=== PATIENT | female | born 1940 | race Caucasian/White ===

== ENCOUNTER 2017-09-24 14:17 | Emergency (ER) | payer MEDICARE, SELFPAY ==
[2017-09-24 14:18] VITALS: BP 145/72; PULSE 74; RESP 18; TEMP 36.9; O2SAT 99; BMI 27.0
--- NOTE | 2017-09-24 14:31 | CT_ITS ---
STUDY: CT ABDOMEN WITH CONTRAST REASON FOR EXAM: Female, 77 years old. Right upper quadrant pain and right lower rib pain. RADIATION DOSAGE (If Supplied By Facility): CTDIvol = ( 11.12 ) mGy, DLP = ( 601.60 ) mGycm TECHNIQUE: Transaxial images were obtained post I.V. administration of 100 ml of Isovue 300 contrast, and oral contrast. Sagittal and coronal images were reconstructed. Individualized dose optimization techniques were used for this CT. COMPARISON: None. FINDINGS: Mild degree of increased markings with mild bronchiectasis at the lung bases suggestive of bibasilar scarring. The visualized portions of the heart are within normal limits. Mild degree of intrahepatic biliary ductal dilatation. Status post cholecystectomy. Dilatation of the common bile duct measuring 1.2 cm in maximum transverse dimension. Normal spleen. 6.3 mm cyst in the region of the body of the pancreas. Simple appearing cyst in the posterior aspect of the body of the pancreas. Normal bilateral adrenal glands. Normal right kidney. Normal left kidney. There is a small hiatal hernia. There has been subtotal resection of the stomach. An anastomosis seen in the mid-distal portion of the small bowel. There are multiple colonic diverticula consistent with diverticulosis. The appendix is visualized and appears normal. Normal abdominal aorta. Normal inferior vena cava. Normal retroperitoneum. The patient is status post hysterectomy. Normal abdominal wall. There are degenerative changes of the visualized lumbar spine. CT/Abdomen/Pelvis WITH Contrast IMPRESSION: Sigmoid diverticulosis. Prior cholecystectomy with a dilated common bile duct. Tiny cystic changes in the pancreas. Electronically Signed: Addy Junior MD at 15:27 EDT Tel [phone], Service support ,
--- NOTE | 2017-09-24 14:31 | EKG12_ITS ---
Test Reason : FALL Blood Pressure : / mmHG Vent. Rate : 075 BPM Atrial Rate : 075 BPM P-R Int : 132 ms QRS Dur : 074 ms QT Int : 400 ms P-R-T Axes : 050 -11 015 degrees QTc Int : 446 ms Normal sinus rhythm Normal ECG When compared with ECG of 19-JUN-2013 17:57, No significant change was found Confirmed by GREGORIA MAYFIELD, PAIGE ([id number]), food expeditor NIRMALA SANCHEZ ([id number] on 10/05/2017 3:09:59 PM Referred By: HASEEB Confirmed By:PAIGE KINNEY MD
--- NOTE | 2017-09-24 14:42 | ED.VISSUMM ---
- ER Visit Summary Date of Service: 09/24/17 Chief Complaint: Patient was drying her legs off after taking a shower and fell striking the commode History of Present Illness: The patient is a 77 F who was driving her legs off. She states she was leaning forward. She states she lost her balance striking toilet. She hit the right side of her chest/abdomen. She complains of pain with movement, breathing. She denies head trauma. She is on no anticoagulant. She denies headache. She denies nausea or vomiting. She denies any ocular, visual or auditory symptoms. She denies neck pain. She denies paresthesia, anesthesia motor weakness. She denies any right upper extremity pain. She has not urinated since the event. She does have history of type 2 diabetes and is on metformin. She was informed that she will not be able take her metformin for 2 days. Physical Examination: Vital signs are unremarkable. Patient appears uncomfortable. Head is atraumatic normocephalic. Pupils are equal round reactive. Extraocular muscles are intact. TMs are pearly white with landmarks noted. Nares patent with no drainage. Posterior pharynx without erythema or exudate. Uvula is midline. There is no dysphonia or dysphasia. Trachea is midline. There is no stridor with auscultation of the neck. There is no midline cervical spine spine tenderness and she has full active range of motion without discomfort. Heart is regular without murmur, gallop or rub. S1 and S2 are normal. Lungs are clear to auscultation with good movement of air bilaterally. There is pain palpation anterior to posterior axillary line over ribs 5, 6, 7 and 8 on the right side. There is pain palpation the right upper quadrant/right costal margin. Patient grimaces with minimal pressure. There is bruising noted. There is no tenderness left upper quadrant. There is no splenomegaly. There is no CVA tenderness appreciated. There is no pain the patient the pelvis. She has full active range of motion of the upper and lower extremities with no evidence of trauma or tenderness. Distal pulses in the upper and lower extremity are palpable. GCS is 15. Patient is alert and oriented ?3. Motor is 5/5. Sensation is intact. DTRs are symmetric without clonus or Babinski. Cranial nerves II through XII are intact. Finger to nose to finger was performed adequately. Test Results: CBC is marked for slight elevation of white count which is secondary to trauma. Glucose is 270. BUN and creatinine are [address] of the abdomen and pelvis with IV contrast to evaluate for hepatic injury was negative for any hepatic injury. There is no evidence of pulmonary contusion, rib fracture or pneumothorax. Film was reviewed by me and interpreted by the radiologist. Emergency Department Course and Treatment: IV was established. She received a fluid bolus. CT of the abdomen with IV contrast was obtained to evaluate for hepatic injury as well as lower rib cage fracture/pulmonary contusion. Patient was medicated with Zofran and morphine for her discomfort. Treatment Plan: Discharged home with pain medicine Disposition: Discharged home with spouse Impression: 1. Right lower rib contusion secondary to fall 2. Right upper quadrant abdominal contusion secondary to fall initial encounter 3. Hyperglycemia type II diabetic This note was generated with goodideazs dictation software. It may contain incorrect words, spelling, and punctuation that were not noted in review of the chart prior to signing ED Disposition - Plan for ED Patient: Disposition: Home or Assisted Living Chief Complaint: Fall Instructions: ED Contusion Rib Prescriptions: Hydrocodone Bitart/Apap 5-325 [[place] 5MG-325MG] 1 tab PO Q6H PRN PRN 3 Days #10 tab PRN Reason: Pain Referrals: Radha Mc MD [Primary Care Provider] - 1 Week if not improving Additional Instructions: 1. Do not take your metformin for the next 2 days. 2. Drink plenty of fluids in next 24 hours 3. You may be sore for several days and may hurt and other places.
[2017-09-24] MEDS: 0.9% Normal Saline 1,000 ML 999 ML IV (14:43)
[2017-09-24] MEDS: Morphine 4 MG/ML Syringe IV (14:44)
[2017-09-24] MEDS: Ondansetron 4 MG/2 ML Vial IV (14:44)
--- NOTE | 2017-09-24 14:52 | NURSING ---
NO LW OR POA
[2017-09-24 14:55] LABS: Absolute Lymphocyte Count 1.39 X10^3/ul (0.83-4.51); Absolute Neutrophil Count 9.2 X10^3/uL (2.0-7.7); Basophil# 0.03 X10^3/uL; Basophil% 0.3 % (0-1); Eosinophil# 0.12 X10^3/uL; Eosinophils% 1.1 % (0-5); Hematocrit 36.6 % (37-47); Hemoglobin 12.2 g/dl (12.0-15.0); Lymphocyte # 1.39 X10^3/ul (4.0); Lymphocyte % 12.2 % (19-41); Mean Corp Hgb Conc 33.3 g/gl (32-36); Mean Corpuscular Hgb 29.2 pg (27.0-32.0); Mean Corpuscular Volume 87.6 fL (81-99); Mean Platelet Vol. 11.2 fl (6.2-12.0); Monocyte# 0.66 X10^3/uL; Monocyte% 5.8 % (0-10); Neutrophil # 9.16 X10^3/uL (2.7-7.7); Neutrophil % 80.4 % (47-70); Platelet Count 233 K/mm3 (150-450); RBC Distribution Width CV 13.3 % (11.6-14.6); RBC Distribution Width SD 41.6 fl (35.1-43.9); Red Blood Count 4.18 M/mm3 (4.2-5.4); White Blood Count 11.4 K/mm3 (4.4-11.0)
[2017-09-24 14:56] LABS: POSITIVE COUNT NO; POSITIVE DIFFERENTIAL NO; POSITIVE MORPHOLOGY NO
[2017-09-24 15:10] LABS: Anion Gap 9 (5-15); BUN 22 mg/dL (7-18); BUN/Creat Ratio 29.9 RATIO (10-20); Calcium,Total 8.8 mg/dL (8.5-10.1); Chloride 102 mmol/L (98-107); Creatinine, Serum 0.74 mg/dL (0.55-1.02); EST Glomerular Filtration Rate 82 mL/min (>60); Est Glom Filt Rate - Afr Amer 99 mL/min (>60); Estimated Creatinine Clearance 36.12 ml/min; Glucose 270 mg/dL (74-106); Potassium 4.6 mmol/L (3.5-5.1); Sodium Level 139 mmol/L (136-145)
[2017-09-24 16:36] VITALS: BP 134/66; PULSE 74; RESP 20; O2SAT 99
== END 2017-09-24 16:39 | disposition home or self-care (01) ==
PROVIDERS: Emergency Provider Emergency Medicine; Family Provider Internal Medicine; PCP Internal Medicine
DX: S20.211A Contusion of right front wall of thorax, initial encounter (principal); S30.1XXA Contusion of abdominal wall, initial encounter; W18.39XA Other fall on same level, initial encounter; Y93.89 Activity, other specified; Y92.9 Unspecified place or not applicable; E11.65 Type 2 diabetes mellitus with hyperglycemia; I10 Essential (primary) hypertension; Z79.84 Long term (current) use of oral hypoglycemic drugs; Z79.899 Other long term (current) drug therapy
CPT/HCPCS: 74177; 80048; 85025; 93005; 96361; 96374; 96375; 99285; Q9967; J2405

== ENCOUNTER 2020-02-23 00:36 | Inpatient (IN) | payer MEDICARE, SELFPAY ==
[2020-02-23] VITALS (9 sets, daily range): BP systolic 110–129; BP diastolic 52–79; PULSE 64–80; RESP 16–22; TEMP 36.6–36.8; O2SAT 93–97; BMI 24.0; BMI 23.5
--- NOTE | 2020-02-23 00:46 | EKG12_ITS ---
Test Reason : ALT LOC Blood Pressure : / mmHG Vent. Rate : 079 BPM Atrial Rate : 079 BPM P-R Int : 128 ms QRS Dur : 082 ms QT Int : 376 ms P-R-T Axes : 034 -21 024 degrees QTc Int : 431 ms Normal sinus rhythm Cannot rule out Anterior infarct , age undetermined Abnormal ECG Confirmed by GREGORIA MAYFIELD, PAIGE ([id number]), news videotape editor JENA RUIZ ([id number]) on 02/26/2020 1:08:19 PM Referred By: BRUCE Confirmed By:PAIGE KINNEY MD
--- NOTE | 2020-02-23 00:46 | CT_ITS ---
STUDY: CT BRAIN WITHOUT CONTRAST REASON FOR EXAM: Female, 79 years old. CONFUSION,HALLUCINATING AND MEMORY ISSUES X 1 WEEK -- ELEVATED BLOOD SUGAR -- HX:HTN,DIABETES RADIATION DOSAGE (If Supplied By Facility): CTDIvol = ( 44.99 ) mGy, DLP = ( 745.49 ) mGycm TECHNIQUE: Transaxial CT imaging of the brain was performed without administration of intravenous contrast material. Individualized dose optimization techniques were used for this CT. COMPARISON: 01/02/2012. FINDINGS: Normal soft tissue structures. Normal calvarium. There is mild cerebral atrophy with widening of the extra-axial spaces and ventricular dilatation. There are areas of decreased attenuation within the white matter tracts of the supratentorial brain, consistent with microvascular disease changes. Normal basal ganglia and thalami. Normal brainstem. Normal cerebellum. There is no intracranial hemorrhage. There are no findings of an acute ischemic infarction. Normal visualized paranasal sinuses. CT/Brain/Head without Contrast IMPRESSION: Chronic changes as described. No acute intracranial hemorrhage or space-occupying lesion. Electronically Signed: Mar Hooker MD at 1:33 EST , Service support ,
--- NOTE | 2020-02-23 00:47 | RAD_ITS ---
STUDY: X-RAY CHEST REASON FOR EXAM: Female, 79 years old. denies any sob, cough or chest pain -- here for confusion TECHNIQUE: Single AP portable view of the chest. COMPARISON: 01/02/2012. FINDINGS: The lungs are clear and expanded. There is no demonstrated pleural abnormality. Normal size heart. Normal mediastinum and michael. Normal visualized pulmonary arteries. There is atherosclerotic calcification of the aortic arch with tortuosity. Normal visualized thoracic spine. There is degenerative osteoarthritis of the bilateral shoulders. There is no demonstrated abnormality of the visualized soft tissue structures of the upper abdomen. RAD/Chest 1 View (Portable) IMPRESSION: No acute cardiopulmonary disease. Electronically Signed: Mar Hooker MD at 1:20 EST , Service support ,
[2020-02-23 00:50] LABS: Bedside Glucose 309 mg/dL (70-110)
[2020-02-23 00:54] LABS: Absolute Lymphocyte Count 2.54 X10^3/uL (0.83-4.51); Absolute Neutrophil Count 6.8 X10^3/uL (2.0-7.7); Basophil# 0.05 X10^3/uL; Basophil% 0.5 % (0-1); Eosinophil# 0.17 X10^3/uL; Eosinophils% 1.6 % (0-5); Hematocrit 41.1 % (37-47); Hemoglobin 13.2 g/dL (12.0-15.0); Lymphocyte # 2.54 X10^3/ul (4.0); Lymphocyte % 24.5 % (19-41); Mean Corp Hgb Conc 32.1 g/dL (32-36); Mean Corpuscular Hgb 26.8 pg (27.0-32.0); Mean Corpuscular Volume 83.5 fL (81-99); Mean Platelet Vol. 10.5 fl (6.2-12.0); Monocyte# 0.78 X10^3/uL; Monocyte% 7.5 % (0-10); NRBC Flagged by Analyzer 0 % (0-5); Neutrophil # 6.79 X10^3/uL (2.7-7.7); Neutrophil % 65.5 % (47-70); Platelet Count 268 K/mm3 (150-450); RBC Distribution Width CV 13.8 % (11.6-14.6); RBC Distribution Width SD 42.3 fl (35.1-43.9); Red Blood Count 4.92 M/mm3 (4.2-5.4); White Blood Count 10.4 K/mm3 (4.4-11.0)
--- NOTE | 2020-02-23 01:01 | ED.DCSUM_ITS ---
History of Present Illness Chief Complaint: Alt LOC Informant: Patient Onset: Days Context: Gradual Onset Timing: Continuous Current Severity: Moderate Maximum Severity: Moderate Narrative: Patient is a 79-year-old female with medical history significant for cirrhosis of unclear etiology, hypertension, and diabetes that presents to the emergency department with confusion. The patient lives by herself. Her daughter has been staying with her for the past week. She states that she has been increasingly confused. She does not think she is taking her diabetes medications appropriately. She states that she has difficulty with word finding which has steadily been worsening. The patient states she has no history of hepatic encephalopathy. She denies fevers or chills. She denies cough. She denies headache or visual change. She states that she feels like she knows what she wants to say, but when she tries to talk, it will be nonsensical. She is had no focal weakness. She has not had any falls. Prior similar symptoms: No Recent Illness/Hospitalization: No Past Medical History - Allergies and Home Meds Allergies/Adverse Reactions: Allergies codeine Allergy (Verified 02/23/20 00:38) Unknown Sulfa (Sulfonamide Antibiotics) Allergy (Verified 02/23/20 00:38) Unknown Primary Care Physician: Radha Mc MD [Primary Care Provider] - Prior records reviewed: Yes Past Medical History: - - Diabetes, hypertension, cirrhosis Surgical History: gastric bypass Lives: With Family Smoking Status: Never smoker Alcohol: None Review of Systems General: Reports: Malaise. Denies: Chills, Fever, Sweats Eyes: Denies: Visual changes - bilaterally, Diplopia ENT: Denies: Rhinorrhea, Sore throat Cardiovascular: Denies: Chest pain, Palpitations Respiratory: Denies: Dyspnea, Cough, Dyspnea on exertion Gastrointestinal: Denies: Abdominal pain, Nausea, Vomiting, Diarrhea, Melena, Hematochezia Genitourinary: Denies: Dysuria, Hematuria, Frequency Musculoskeletal: Denies: Back pain, Extremity Pain Skin: Denies: Rash, Wounds Neurological: Reports: Weakness. Denies: Headache, Numbness Psych: Denies: Anxiety Endocrine: Reports: Polyuria Physical Exam Vital Signs/Narrative: Vital Signs Temp Pulse Resp BP Pulse Ox 02/23/20 00:39 97.9 F 80 22 H 129/79 H 95 Inital Vital Signs reviewed: Yes General: Well nourished, Well developed, No Acute Distress Head: Normocephalic, Atraumatic Eyes: Perrl, EOMI ENT: Moist mucous membranes, No rhinorrhea Neck: Supple, Nontender Cardiovascular: Regular rate, Regular rhythm, No murmurs Respiratory: No distress, CTA bilaterally, Chest nontender Abdomen: Soft, Nontender, Nondistended, Normal bowel sounds Back: Nontender, Normal Inspection Extremities: Nontender, No edema Skin: Normal color, No rash Neurological: Alert, Oriented x3, Cranial nerves II-XII grossly intact, Normal Strength, Normal Sensation, - - Intermittent word finding difficulties. Oriented by 3. No ataxia. Psychological: Normal affect, Normal Mood Diagnostic/Tx/Re-eval Clinical Impression(s) from Imaging Studies Brain CT 02/23/20 00:46 IMPRESSION: Chronic changes as described. No acute intracranial hemorrhage or space-occupying lesion. Electronically Signed: Mar Hooker MD at 1:33 EST , Service support , Chest X-Ray 02/23/20 00:47 IMPRESSION: No acute cardiopulmonary disease. Electronically Signed: Mar Hooker MD at 1:20 EST , Service support , Abnormal Lab Results 02/23/20 02/23/20 02/23/20 00:44 00:45 00:45 WBC 10.4 RBC 4.92 Hgb 13.2 Hct 41.1 MCV 83.5 MCH 26.8 L MCHC 32.1 RDW Std Deviation 42.3 RDW Coeff of Kamari 13.8 Plt Count 268 MPV 10.5 Immature Gran % (Auto) 0.400 Neut % (Auto) 65.5 Lymph % (Auto) 24.5 [place] % (Auto) 7.5 Eos % (Auto) 1.6 Baso % (Auto) 0.5 Absolute Neuts (auto) 6.8 Absolute Lymphs (auto) 2.54 Nucleated RBC % 0 PT 12.2 INR 1.0 Sodium Potassium Chloride Carbon Dioxide Anion Gap BUN Creatinine Estim Creat Clear Calc Est GFR (MDRD) Af Amer Est GFR (MDRD) Non-Af BUN/Creatinine Ratio Glucose Lactic Acid Calcium Total Bilirubin AST ALT Alkaline Phosphatase Ammonia Total Protein Albumin Globulin Albumin/Globulin Ratio POC Glucose 309 H 02/23/20 02/23/20 02/23/20 00:45 00:59 00:59 WBC RBC Hgb Hct MCV MCH MCHC RDW Std Deviation RDW Coeff of Kamari Plt Count MPV Immature Gran % (Auto) Neut % (Auto) Lymph % (Auto) [place] % (Auto) Eos % (Auto) Baso % (Auto) Absolute Neuts (auto) Absolute Lymphs (auto) Nucleated RBC % PT INR Sodium 131 L Potassium 4.9 Chloride 96 L Carbon Dioxide 24.0 Anion Gap 11 BUN 66 H Creatinine 1.01 Estim Creat Clear Calc 34.64 Est GFR (MDRD) Af Amer 68 Est GFR (MDRD) Non-Af 56 L BUN/Creatinine Ratio 65.3 H Glucose 334 H Lactic Acid 3.5 H* Calcium 9.7 Total Bilirubin 0.50 AST 32 ALT 143 H Alkaline Phosphatase 97 Ammonia 30.0 Total Protein 8.1 Albumin 4.0 Globulin 4.1 Albumin/Globulin Ratio 1.0 POC Glucose - Medical Decision Making Patient is a 79-year-old female presents to the emergency department with increasing confusion. She does have some difficulty with word finding. She has no focal motor weakness. She does not have asterixis. She does have history of cirrhosis of unclear etiology. Broad metabolic work-up was pursued. Screening labs are relatively unremarkable except for markedly elevated BUN of 66. Her INR is normal. Her liver functions are normal. The patient does have an elevated lactic acid, but really has no other infectious symptoms. Her anion gap is normal. Her bicarb is normal. She has been having high sugars for the past week. I do feel that she is likely having prerenal azotemia and dehydration. My suspicion is that she is likely uremic causing her confusion. The patient's BUN on 17 October was normal at 19. Her creatinine was also 0.6 at that [address]. Noncontrast head CT was negative for acute process. Chest x-ray is unremarkable. Patient was given IV fluids. Urine was obtained. With the patient's delirium and uremia, I do feel that she would benefit from admission. Impression 1. Encephalopathy 2. Uremia 3. Hyperglycemia ED Disposition - Plan for ED Patient: Referrals: Radha Mc MD [Primary Care Provider] -
[2020-02-23 01:07] LABS: AST(SGOT) 32 U/L (15-37); Alanine Aminotransfer ALT/SGPT 143 U/L (13-56); Alkaline Phosphatase 97 U/L (45-117); Anion Gap 11 (5-15); BUN 66 mg/dL (7-18); BUN/Creat Ratio 65.3 RATIO (10-20); Calcium,Total 9.7 mg/dL (8.5-10.1); Chloride 96 mmol/L (98-107); Creatinine, Serum 1.01 mg/dL (0.55-1.02); EST Glomerular Filtration Rate 56 mL/min (>60); Est Glom Filt Rate - Afr Amer 68 mL/min (>60); Estimated Creatinine Clearance 34.64 ml/min; Globulin 4.1 g/dL (2.2-4.2); Glucose 334 mg/dL (74-106); Potassium 4.9 mmol/L (3.5-5.1); Protein, Total 8.1 g/dL (6.4-8.2); Sodium Level 131 mmol/L (136-145)
[2020-02-23 01:09] LABS: Prothrombin Time (Protime)PT. 12.2 SECONDS (11.7-14.9)
[2020-02-23 01:34] LABS: Lactic Acid 3.5 mmol/L (0.4-1.9)
[2020-02-23 01:48] LABS: Magnesium 2.5 mg/dL (1.6-2.6); Phosphorus 8.2 mg/dL (2.5-4.9)
[2020-02-23] MEDS: 0.9% Normal Saline 1,000 ML 999 ML IV (02:12)
[2020-02-23 02:13] LABS: Bacteria 0 SEEN /hpf (None Seen); Color, Urine Straw (Yellow); Glucose, Dipstick 1000 mg/dl (Normal); Ketone-Dipstick 5 mg/dl (Negative); Leukocyte Esterase-Dipstick 25 /ul (Negative); Mucous, Urine 0 SEEN /hpf (<or=2+); Nitrite-Dipstick Negative (Negative); Occult Blood-Urine Negative /ul (Negative); Protein-Dipstick Negative (Negative); Red Blood Cells-Urine 0 SEEN /hpf (0-5); Squamous Epithelial Cells - UA 0 SEEN /hpf (5-10); Urine Bilirubin Dipstick Negative (Negative); Urine Clarity Clear (Clear); Urine Urobilinogen Normal (Normal)
[2020-02-23 02:29] LABS: Transitional Epithelial - Ur 0-5 SEEN /hpf (0-5); White Blood Cells 0-5 SEEN /hpf (0-5)
--- NOTE | 2020-02-23 03:34 | PCM.HP.STD ---
Problem List (1) Uremic encephalopathy Status: Acute (2) History of gastric bypass Status: Chronic (3) Diabetes mellitus, type 2 Status: Chronic (4) Cirrhosis, nonalcoholic Status: Chronic History of Present Illness Date of Admission: 02/23/20 Chief Complaint: confusion The patient is a 79 year old F with a significant history of depression; diabetes mellitus; vitamin D deficiency; and osteoporosis presents emergency department with 1 week history of persistent confusion. Reportedly patient has been confused and missing her medication and also using word substitution. Because of her confusion her daughter went to live with patient. Reportedly blood glucose at home has been around 500. Past Medical History Past Medical History (Chronic Problems): Chronic Problems History of gastric bypass (Chronic) Diabetes mellitus, type 2 (Chronic) Cirrhosis, nonalcoholic (Chronic) Allergies codeine Allergy (Verified 02/23/20 00:38) Unknown Sulfa (Sulfonamide Antibiotics) Allergy (Verified 02/23/20 00:38) Unknown Home Medications: Ambulatory Orders Medication Instructions Recorded Amitriptyline HCl [Elavil] 50 mg PO DAILY 06/19/13 Metoprolol(XL)Succ [Toprol Xl 25 mg PO DAILY 06/19/13 (Beta Meg)] Simvastatin [Zocor] 10 mg PO QHS 06/19/13 Spironolactone [Aldactone] 25 mg PO DAILY 06/19/13 metFORMIN HCl [Glucophage] 1,000 mg PO BID 06/19/13 Multivitamin [Multiple Vitamins] 1 each PO DAILY 04/30/16 Cholecalciferol (Vitamin D3) 4,000 unit PO DAILY 02/23/20 [Vitamin D3] Cyanocobalamin [Vitamin B12] 1,000 mcg PO DAILY@0800 02/23/20 Empagliflozin [Jardiance] 10 mg PO BREAKFAST 02/23/20 Ergocalciferol (Vitamin D2) 50,000 unit PO MO 02/23/20 [Vitamin D2] Gabapentin 300 mg PO DAILY 02/23/20 Liraglutide [Victoza 3-Wes] 1.8 mg SQ DAILY 02/23/20 Surgical History: cholecystectomy, gastric bypass, hysterectomy, total knee arthroplasty, - - Knee ACL repair; 3 C-sections; shoulder surgery. Lives: With Family Smoking Status: Never smoker Tobacco Use: Non-smoker Alcohol: None - *Family History Maternal History Items: - - Her mother at the age of 99 Paternal History Items: Heart Disease - Her father at the age of 49 from heart disease. Review of Systems Constitutional: Reports: Fatigue. Denies: Chills, Fever, Weight Change HEENT: Denies: Head Aches, Sinus Congestion, Sinus Drainage Cardiovascular: Denies: Chest Pain, Palpitations Respiratory: Denies: Cough, Shortness of breath at rest, Sputum production Gastrointestinal: Denies: Abdominal Pain, Nausea, Vomiting Genitourinary: Reports: Frequency - Increased urinary frequency. Denies: Dysuria Musculoskeletal: Denies: Joint Pain, Joint Tenderness Skin: Denies: Rash, Wounds Neurological: Reports: Confusion. Denies: Focal weakness, Numbness, Tingling Psychiatric: Denies: Anxiety, Depression, Homicidal Ideations, Suicidal Ideations Hematologic/ Lymphatic: Denies: Easy Bruising, Easy Bleeding VTE Information - Inpt Only VTE Present on Admission: No VTE Mechan Device Prophylaxis: None VTE Pharm Prophylaxis ordered?: Yes Patient Problems: Active and Suspected Problems Uremic encephalopathy (Acute) - Physical Exam Vitals/I&O's: Vital Signs Temp Pulse Resp BP Pulse Ox 97.9 F 75 18 110/74 94 02/23/20 02:59 02/23/20 02:59 02/23/20 02:59 02/23/20 02:59 02/23/20 02:59 Oxygen Delivery Method Room Air Weight: 57.8 kg Body Mass Index (BMI) 24.0 Finger Stick Blood Glucose 309 Intake and Output for Last 24 Hours 02/21/20 02/22/20 02/23/20 23:59 23:59 23:59 Intake Total 500 / 500 Balance 500 / 500 General: Alert, Oriented x3 - Patient know of where she is. She knows the place, the year and the month., Cooperative HEENT: Atraumatic, PERRLA, EOMI, Normocephalic Neck: Supple, No JVD, Negative Carotid Bruits Lungs: Clear to auscultation, Normal air movement Cardiovascular: Regular rate, Normal S1, Normal S2, No murmurs Abdomen: Bowel Sounds Present, Soft, Non Tender Extremities: No edema, Capillary Refill Less than 3 Seconds Skin: No rashes, No breakdown Musculoskeletal: No Tenderness to Palpation of Joints or Extremities Neurological: Cranial nerves II-XII grossly intact Psych/Mental Status: Normal Affect, Appropriate Laboratory Results 02/23/20 00:44: POC Glucose 309 H 02/23/20 00:45: WBC 10.4, RBC 4.92, Hgb 13.2, Hct 41.1, MCV 83.5, MCH 26.8 L, MCHC 32.1, RDW Std Deviation 42.3, RDW Coeff of Kamari 13.8, Plt Count 268, MPV 10.5, Immature Gran % (Auto) 0.400, Neut % (Auto) 65.5, Lymph % (Auto) 24.5, [place] % (Auto) 7.5, Eos % (Auto) 1.6, Baso % (Auto) 0.5, Absolute Neuts (auto) 6.8, Absolute Lymphs (auto) 2.54, Nucleated RBC % 0 02/23/20 00:45: PT 12.2, INR 1.0 02/23/20 00:45: Sodium 131 L, Potassium 4.9, Chloride 96 L, Carbon Dioxide 24.0, Anion Gap 11, BUN 66 H, Creatinine 1.01, Estim Creat Clear Calc 34.64, Est GFR (MDRD) Af Amer 68, Est GFR (MDRD) Non-Af 56 L, BUN/Creatinine Ratio 65.3 H, Glucose 334 H, Calcium 9.7, Total Bilirubin 0.50, AST 32, ALT 143 H, Alkaline Phosphatase 97, Total Protein 8.1, Albumin 4.0, Globulin 4.1, Albumin/Globulin Ratio 1.0 02/23/20 00:45: Phosphorus 8.2 H, Magnesium 2.5 02/23/20 00:59: Ammonia 30.0 02/23/20 00:59: Lactic Acid 3.5 H* 02/23/20 02:09: Urine Color Straw, Urine Clarity Clear, Urine pH 5.0, Ur Specific [place] 1.020, Urine Protein Negative, Urine Glucose (UA) 1000 H, Urine Ketones 5 H, Urine Occult Blood Negative, Urine Nitrite Negative, Urine Bilirubin Negative, Urine Urobilinogen Normal, Ur Leukocyte Esterase 25 H, Urine RBC 0 SEEN, Urine WBC 0-5 SEEN, Ur Squamous Epith Cells 0 SEEN, Ur Transition Epith Cell 0-5 SEEN, Urine Bacteria 0 SEEN, Urine Mucus 0 SEEN Current Medications Dextrose (Dextrose 50%-Water 25 Gm/50 Ml Disp.Syrin) 0 gm IV X1 PRN; Protocol PRN Reason: Hypoglycemia Glucagon (Glucagon 1 Mg/Ml Syringe) 1 mg IM .X1 PRN PRN Reason: Hypoglycemia Insulin Glargine (Insulin Glargine 100 Units/Ml Pen) 10 units SC 1100 BOBBI Insulin Human Lispro (Insulin Lispro 100 Unit/Ml Insuln.Pen) 0 unit SC ACHS & 3AM BOBBI; Protocol Insulin Human Lispro (Insulin Lispro 100 Unit/Ml Insuln.Pen) 8 unit SC X1 ONE Stop: 02/23/20 04:01 Assessment/Plan All Active Problems Uremic encephalopathy (Acute) Acute uremic encephalopathy. Brain CT without any acute abnormalities. Review of medical department labs showed BUN of 66. Highest previous BUN of is 29. Received normal saline bolus in the emergency department. Hold home spironolactone. Gentle IV hydration Trend BMP. Acute VIELKA Creatinine of 1.01. Previously highest creatinine on file is 0.78. Review of community records , clinisync: On 10/18/2019 her creatinine was 0.61 and BUN was 19. BUN over creatinine is 65.3. Likely prerenal Avoid nephrotoxins Gentle IV hydration Urine electrolytes ordered. Diabetes mellitus with polyneuropathy and acute hyperglycemia Gabapentin continued. Dose adjusted secondary to VIELKA. IV hydration as above. Jardiance continued Hold Victoza in the hospital setting Metformin held secondary to lactic acidosis Basal insulin ordered. Accu-Chek QA CHS and 3 AM with correction scale insulin. Vitamin D deficiency Vitamin D continued Ruiz cirrhosis Hold Aldactone for now. Hydrate as above. Hyperlipidemia Zocor continue. Hypertension Blood pressure is stable in regard to her age Metoprolol continued. Trend blood pressure negative blood pressure medications. DVT prophylaxis Subcutaneous Lovenox. Inpatient E&M: [id number] Init Hosp L3
[2020-02-23] MEDS: 0.9% Normal Saline 1,000 ML 100 ML IV ×2 (04:23→16:17)
[2020-02-23 04:46] LABS: Urea Nitrogen, Urine 760 mg/dL (NO RANGE EST.); Urine Sodium 53 mmol/L (Not Establ.)
[2020-02-23 04:46] LABS: Bedside Glucose 180 mg/dL (70-110)
[2020-02-23 05:07] LABS: Reflex Lactate? Y
[2020-02-23] MEDS: Insulin Lispro 100 UNIT/ML INSULN.PEN SC ×5 (06:33→21:31)
[2020-02-23 06:38] LABS: Anion Gap 11 (5-15); BUN 55 mg/dL (7-18); BUN/Creat Ratio 64.1 RATIO (10-20); Calcium,Total 9.2 mg/dL (8.5-10.1); Chloride 99 mmol/L (98-107); Creatinine, Serum 0.86 mg/dL (0.55-1.02); EST Glomerular Filtration Rate 68 mL/min (>60); Est Glom Filt Rate - Afr Amer 82 mL/min (>60); Estimated Creatinine Clearance 40.68 ml/min; Glucose 285 mg/dL (74-106); Potassium 4.2 mmol/L (3.5-5.1); Sodium Level 133 mmol/L (136-145)
[2020-02-23 06:46] LABS: Bedside Glucose 234 mg/dL (70-110)
[2020-02-23 06:52] LABS: Lactic Acid 3.1 mmol/L (0.4-1.9)
--- NOTE | 2020-02-23 07:22 | PCM.HOSP.N ---
Hospitalist Note This is a 71-year-old female with history of diabetes mellitus type 2, depression, MCWILLIAMS treated cirrhosis was admitted with 1 week history of confusion and disorientation. Her glucose was elevated 500 at home. Patient was admitted pelota maker today. H&P, vitals, labs and imaging reviewed. Physical exam Lungs: Air entry diminished in bilateral lung bases. No crepitation/rhonchi Heart: S1-S2 regular, no murmurs/gallops/rubs. Abdomen: Mild tenderness in right upper costal margin. Liver not enlarged. No ascites. Spleen not palpable. Bowel sounds present. Not distended. Extremities: No peripheral edema. 1. Possible Mcwilliams related cirrhosis with metabolic encephalopathy from uremia/lactic acidosis/hepatic encephalopathy:BUN was high 66 but creatinine normal. Lactic acid was high. Continue IV fluid. Patient states she gets constipation. 2. Acute VIELKA: Continue IV fluid. Other comorbidities as listed above diabetes mellitus type 2 with polyneuropathy, vitamin D deficiency, dyslipidemia and hypertension. DVT prophylaxis Subcutaneous Lovenox.
[2020-02-23] MEDS: Multivitamins,Therapeutic Tablet 1 TABLET PO (10:07)
[2020-02-23] MEDS: Empagliflozin 10 MG Tablet PO (10:07)
[2020-02-23] MEDS: Gabapentin 100 MG Capsule PO (10:08)
[2020-02-23] MEDS: Cyanocobalamin 500 MCG Tablet 1000 MCG PO (10:08)
[2020-02-23] MEDS: Amitriptyline 25 MG Tablet 50 MG PO (10:08)
[2020-02-23] MEDS: Metoprolol(XL)Succ 25 MG Tablet PO (10:09)
[2020-02-23] MEDS: Enoxaparin 40 MG/0.4 ML Syringe SC (10:15)
--- NOTE | 2020-02-23 10:55 | CASEMGMT ---
RN CM Face to Face with patient for initial transition planning/care coordination assessment. RN CM introduced self and role at [facility]. Patient lying in bed, alert and oriented. Patient willing to participate in assessment and is able to answer all questions appropriately. Care providers, pharmacy, and demographics verified. Patient wishes to discharge home, denies need for home health at this time. Patient states she has no further needs or concerns at this time. CM to follow for discharge planning needs that may arise. PCP: Jesusita Specialists: none Preferred Pharmacy: [facility] Insurance: [facility] Prescription Benefit: yes Living Will/HPOA: yes, Donald Henry LNOK: Living Arrangements: Patient lives with in a single story home with 2 steps and railing to enter the home. Patient is independent at home. Transportation: self/daughter DME/HHC: Patient states she has cane, walker, grab bars, and glucometer at home. Patient denies previous HHC. Disposition Plan: Patient to discharge home with family support and follow-up plans in place. Ramona KENNEDY, RN, CM
[2020-02-23 11:51] LABS: Bedside Glucose 287 mg/dL (70-110)
[2020-02-23] MEDS: Lactulose 20 GM/30 ML UDC 10 GM PO ×2 (16:17→21:31)
[2020-02-23 17:21] LABS: Bedside Glucose 276 mg/dL (70-110)
[2020-02-23] MEDS: Atorvastatin Calcium 10 MG Tablet 5 MG PO (21:36)
[2020-02-23] MEDS: rifAXIMin 550 MG Tablet PO (21:38)
[2020-02-23 21:46] LABS: Bedside Glucose 237 mg/dL (70-110)
--- NOTE | 2020-02-23 23:31 | NURSING ---
pt was requesting to call daughter and asked if this RN will speak with pts daughter. this RN talked with pts daughter regarding an update. pts most recent labs were discussed, and pt and daughter both updated that MD was wanting a ABD US scheduled for in the morning to find out more. pts daughter voiced concern that she thinks pt is still confused and has to be reminded frequently about her and where he is. upon further assessment, pt has been A&Ox3, answering all questions appropriately per dayshift and for this RN tonight. pts daughter restates that she would like an update in the morning, or would like to be on the phone when the doctor comes and rounds in the AM, as daughter thinks pt is still not at her baseline. This RN stated that I will pass the information along to dayshift RN
[2020-02-24] MEDS: 0.9% Normal Saline 1,000 ML 100 ML IV (01:29)
[2020-02-24 04:02] VITALS: BP 130/61; PULSE 70; RESP 18; TEMP 36.7; O2SAT 97
--- NOTE | 2020-02-24 07:00 | US_ITS ---
STUDY: ABDOMINAL ULTRASOUND - RIGHT UPPER QUADRANT REASON FOR VISIT: Female, 79 years old H/O CIRRHOSIS, MCWILLIAMS RUQ PAIN S/P ROSSANA TECHNIQUE: Ultrasound evaluation of the right upper quadrant was performed with real-time and static cruz-scale imaging. TECHNICAL QUALITY: Adequate. COMPARISON: CT 09/24/2017 FINDINGS: Liver: The liver measures 12.0 cm. There is normal echogenicity of the liver. The bile ducts are within normal limits. There is hepatic color flow. The direction of portal flow is hepatopetal. There is no demonstrated mass lesion. Gallbladder: The patient is status post cholecystectomy.. Common Bile Duct (C.B.D.): The common bile duct measures 11 mm. Pancreas: Normal size of the head, body and tail of the pancreas. There is normal echogenicity of the pancreas. 1.4 cm round anechoic mass with increased through transmission either within or adjacent to the pancreas suggestive of a cyst. Correlation with pancreas protocol CT is recommended. Right Kidney: Normal size of the right kidney. The right kidney measures 11.5 cm. Normal renal cortex. The right cortex measures 1.4 cm. There is no demonstrated renal mass or cyst. There is no right hydronephrosis. US/Abdomen Limited IMPRESSION: 1.4 cm cyst either within or adjacent to the pancreas and correlation with pancreas protocol CT is recommended. Electronically Signed: Yemi Fraser MD at 9:11 EST Tel , Service support ,
[2020-02-24 07:15] VITALS: O2SAT 93
[2020-02-24 08:07] LABS: Absolute Lymphocyte Count 2.06 X10^3/uL (0.83-4.51); Absolute Neutrophil Count 4.8 X10^3/uL (2.0-7.7); Basophil# 0.04 X10^3/uL; Basophil% 0.5 % (0-1); Eosinophil# 0.19 X10^3/uL; Eosinophils% 2.4 % (0-5); Hematocrit 38.8 % (37-47); Hemoglobin 12.3 g/dL (12.0-15.0); Lymphocyte # 2.06 X10^3/ul (4.0); Lymphocyte % 26.3 % (19-41); Mean Corp Hgb Conc 31.7 g/dL (32-36); Mean Corpuscular Hgb 26.9 pg (27.0-32.0); Mean Corpuscular Volume 84.9 fL (81-99); Monocyte# 0.67 X10^3/uL; Monocyte% 8.6 % (0-10); NRBC Flagged by Analyzer 0 % (0-5); Neutrophil # 4.83 X10^3/uL (2.7-7.7); Neutrophil % 61.8 % (47-70); Platelet Count 227 K/mm3 (150-450); RBC Distribution Width CV 14.1 % (11.6-14.6); RBC Distribution Width SD 43.6 fl (35.1-43.9); Red Blood Count 4.57 M/mm3 (4.2-5.4); White Blood Count 7.8 K/mm3 (4.4-11.0)
[2020-02-24 08:32] LABS: ALB/GLOB Ratio 0.9 RATIO (0.9-2.4); AST(SGOT) 55 U/L (15-37); Alanine Aminotransfer ALT/SGPT 103 U/L (13-56); Albumin, Serum 3.3 g/dL (3.2-5.0); Alkaline Phosphatase 75 U/L (45-117); Anion Gap 6 (5-15); BUN 29 mg/dL (7-18); BUN/Creat Ratio 49.3 RATIO (10-20); Calcium,Total 8.6 mg/dL (8.5-10.1); Chloride 107 mmol/L (98-107); Creatinine, Serum 0.59 mg/dL (0.55-1.02); EST Glomerular Filtration Rate 105 mL/min (>60); Est Glom Filt Rate - Afr Amer 127 mL/min (>60); Estimated Creatinine Clearance 34.99 ml/min; Globulin 3.5 g/dL (2.2-4.2); Glucose 204 mg/dL (74-106); Potassium 4.4 mmol/L (3.5-5.1); Protein, Total 6.8 g/dL (6.4-8.2); Sodium Level 137 mmol/L (136-145)
[2020-02-24 10:45] VITALS: BP 135/61; PULSE 73; RESP 18; TEMP 36.7; O2SAT 96
[2020-02-24] MEDS: Insulin Lispro 100 UNIT/ML INSULN.PEN SC ×2 (11:02)
[2020-02-24] MEDS: Cyanocobalamin 500 MCG Tablet 1000 MCG PO (11:04)
[2020-02-24] MEDS: Enoxaparin 40 MG/0.4 ML Syringe SC (11:04)
[2020-02-24] MEDS: Empagliflozin 10 MG Tablet PO (11:04)
[2020-02-24] MEDS: Amitriptyline 25 MG Tablet 50 MG PO (11:05)
[2020-02-24] MEDS: Multivitamins,Therapeutic Tablet 1 TABLET PO (11:05)
[2020-02-24] MEDS: Gabapentin 100 MG Capsule PO (11:05)
[2020-02-24 11:06] VITALS: PULSE 73
[2020-02-24] MEDS: Metoprolol(XL)Succ 25 MG Tablet PO (11:06)
[2020-02-24] MEDS: rifAXIMin 550 MG Tablet PO (11:09)
[2020-02-24 11:15] LABS: Bedside Glucose 313 mg/dL (70-110)
--- NOTE | 2020-02-24 11:15 | DCINST_ITS ---
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) Diabetes mellitus, type 2 (Chronic) Cirrhosis, nonalcoholic (Chronic) You will use the following diet at home:: Calorie/Carbohydrate Controlled (specify 1200, 1400, etc) - diet callCardiac Your food should be the consistency of: Regular Discharge Activity: May Not Drive - For 2 week until see his PCP Weight Bearing Status: Weight bearing as tolerated - hospitals Call your doctor if you observe: Fever of 101 or Higher, Coldness, Increased Pain, Numbness or Tingling, Change in Color, Inability to urinate, Inability to have a bowel movement, Using more than one pad per hour, Shortness of breath, Dizziness, Fainting spells, Swelling in the ankles, Prolonged hiccoughing, Increased palpitations (irregular heartbeat), Calf discomfort, Uncontrolled pain Allergies/Adverse Reactions: Allergies codeine Allergy (Verified 02/23/20 00:38) Unknown Sulfa (Sulfonamide Antibiotics) Allergy (Verified 02/23/20 00:38) Unknown Medications to take at Discharge Amitriptyline HCl [Elavil] 50 mg PO DAILY 06/19/13 Metoprolol(XL)Succ [Toprol Xl (Beta Meg)] 25 mg PO DAILY 06/19/13 Simvastatin [Zocor] 10 mg PO QHS 06/19/13 Spironolactone [Aldactone] 25 mg PO DAILY 06/19/13 Multivitamin [Multiple Vitamins] 1 each PO DAILY 04/30/16 Cholecalciferol (Vitamin D3) [Vitamin D3] 4,000 unit PO DAILY 02/23/20 Cyanocobalamin [Vitamin B12] 1,000 mcg PO DAILY@0800 02/23/20 Empagliflozin [Jardiance] 10 mg PO BREAKFAST 02/23/20 Ergocalciferol (Vitamin D2) [Vitamin D2] 50,000 unit PO MO 02/23/20 Gabapentin 300 mg PO DAILY 02/23/20 Liraglutide [Victoza 3-Wes] 1.8 mg SQ DAILY 02/23/20 metFORMIN HCl [Glucophage] 500 mg PO BID #0 02/24/20 Primary Care Physician: Radha Mc MD [Primary Care Provider] - Please follow up with your Primary Care Physician in: 1 to 2 weeks Test Results: Test results from this visit will be discussed in further detail at your follow- up appointment, if applicable.
--- NOTE | 2020-02-24 11:16 | DS.PCM_ITS ---
Discharge Date and Diagnosis - Problem List Patient Problems: Active and Suspected Problems Uremic encephalopathy (Acute) Date of Admission: 02/23/20 Date of Discharge: 02/24/20 - Primary Discharge Diagnosis Acute Problems: Active Problems Uremic encephalopathy (Acute) - Secondary Discharge Diagnosis Chronic Problems: Chronic Problems History of gastric bypass (Chronic) Diabetes mellitus, type 2 (Chronic) Cirrhosis, nonalcoholic (Chronic) Hospital Course and Treatment Imaging Results: 02/24/20 07:00 Abdomen Limited [US] Urgent Summary of Care Provided: The patient is a 79 year old F with history of diabetes mellitus type 2, depression was admitted with 1 week history of confusion and disorientation. On further history, she does not have history of Ruiz but she had some liver dysfunction secondary to medication, probably DI LI in the past. She was admitted on the [facility] floor. There was mild right upper quadrant tenderness which got resolved. Right upper quadrant sonogram was done which shows normal echogenicity of liver and bile duct within normal liver. No mass lesion. Status post cholecystectomy. CBD 11 mm. Incidental finding of 1.4 cm anechoic mass within adjacent to pancreas suggestive of cyst. Follow-up with PCP for further definition of the cyst with CT scan with pancreas protocol CT recommendation from radiologist. Confusion disorientation resolved. Acute encephalopathy most probably metabolic from lactic acidosis. Patient was advised to decrease Metformin 500 mg twice daily to be started 5 days after discharge. Follow with PCP in 1 to 2 weeks. Discharge medication reconciliation done. Discharge follow-up instructions completed. Discharge process discussed with the patient and all questions were answered to patient's satisfaction. Total time spent, exact 35 minutes on discharge meds reconciliation, examination, coordination of care with nurses and ancillary staff, review of imaging and blood test and discussion with the patient on follow-up instructions Clinical Impression(s) from Imaging Studies Brain CT 02/23/20 00:46 IMPRESSION: Chronic changes as described. No acute intracranial hemorrhage or space-occupying lesion. Chest X-Ray 02/23/20 00:47 IMPRESSION: No acute cardiopulmonary disease. Abdomen Ultrasound 02/24/20 07:00 IMPRESSION: 1.4 cm cyst either within or adjacent to the pancreas and correlation with pancreas protocol CT is recommended. [] Patient Problems: Active and Suspected Problems Uremic encephalopathy (Acute) Objective: Seen and examined. Patient remains at baseline. She had gastric bypass surgery in the past. She had some liver dysfunction secondary to medication in the past. Right upper quadrant tenderness is resolved. Physical exam General: Alert, Oriented x3, Cooperative HEENT: Atraumatic, PERRLA, EOMI, Normocephalic Oral: No Gingival or Mucosal Lesions/ Ulcerations Neck: Supple, No JVD, Negative Carotid Bruits Lungs: Air entry equal in bilateral lung bases. No crepitation/rhonchi Cardiovascular: Regular rate, Regular Rhythm, Normal S1, Normal S2, No murmurs Abdomen: Bowel Sounds Present, Soft, Non Tender, Non-Distended : No renal angle tenderness. No suprapubic tenderness. Extremities: No edema, Capillary Refill Less than 3 Seconds Skin: No rashes, No breakdown Musculoskeletal: No Tenderness to Palpation of Joints or Extremities Neurological: Cranial nerves II-XII grossly intact, Deep Tendon Reflexes 2+/4 and Symmetrical, Neuro grossly intact Psych/Mental Status: Normal Affect, Appropriate. - Physical Exam Vitals/I&O's: Vital Signs Temp Pulse Resp BP Pulse Ox 98.1 F 73 18 130/61 H 97 02/24/20 04:02 02/24/20 11:06 02/24/20 04:02 02/24/20 04:02 02/24/20 04:02 Oxygen Delivery Method Room Air Weight: 124 lb 5.451 oz Body Mass Index (BMI) 23.5 Finger Stick Blood Glucose 309 Intake and Output for Last 24 Hours 02/22/20 02/23/20 02/24/20 23:59 23:59 23:59 Intake Total 3300 / 3300 920 / 920 Output Total 1000 / 1000 350 / 350 Balance 2300 / 2300 570 / 570 Laboratory Results 02/23/20 11:12: POC Glucose 287 H 02/23/20 16:13: POC Glucose 276 H 02/23/20 21:30: POC Glucose 237 H 02/24/20 07:26: WBC 7.8, RBC 4.57, Hgb 12.3, Hct 38.8, MCV 84.9, MCH 26.9 L, MCHC 31.7 L, RDW Std Deviation 43.6, RDW Coeff of Kamari 14.1, Plt Count 227, MPV 11.0, Immature Gran % (Auto) 0.400, Neut % (Auto) 61.8, Lymph % (Auto) 26.3, Williams % (Auto) 8.6, Eos % (Auto) 2.4, Baso % (Auto) 0.5, Absolute Neuts (auto) 4.8, Absolute Lymphs (auto) 2.06, Nucleated RBC % 0 02/24/20 07:26: Sodium 137, Potassium 4.4, Chloride 107, Carbon Dioxide 24.0, Anion Gap 6, BUN 29 H, Creatinine 0.59, Estim Creat Clear Calc 34.99, Est GFR (MDRD) Af Amer 127, Est GFR (MDRD) Non-Af 105, BUN/Creatinine Ratio 49.3 H, Glucose 204 H, Calcium 8.6, Total Bilirubin 0.30, AST 55 H, ALT 103 H, Alkaline Phosphatase 75, Total Protein 6.8, Albumin 3.3, Globulin 3.5, Albumin/Globulin Ratio 0.9 02/24/20 09:56: Lactic Acid 1.0 02/24/20 11:00: POC Glucose 313 H Current Medications Amitriptyline HCl (Amitriptyline 25 Mg Tablet) 50 mg PO DAILY [facility] Last Admin: 02/24/20 11:05 Dose: 50 mg Documented by: Atorvastatin Calcium (Atorvastatin Calcium 10 Mg Tablet) 5 mg PO QHS [facility] Last Admin: 02/23/20 21:36 Dose: 5 mg Documented by: Cholecalciferol (Cholecalciferol (Vit D3) 1,000 Unit (25mcg)) 4,000 unit PO DAILY [facility] Last Admin: 02/24/20 11:06 Dose: 4,000 unit Documented by: Cyanocobalamin (Cyanocobalamin 500 Mcg Tablet) 1,000 mcg PO DAILY@0800 [facility] Last Admin: 02/24/20 11:04 Dose: 1,000 mcg Documented by: Dextrose (Dextrose 50%-Water 25 Gm/50 Ml Disp.Syrin) 0 gm IV X1 PRN; Protocol PRN Reason: Hypoglycemia Empagliflozin (Empagliflozin 10 Mg Tablet) 10 mg PO BREAKFAST [facility] Last Admin: 02/24/20 11:04 Dose: 10 mg Documented by: Enoxaparin Sodium (Enoxaparin 40 Mg/0.4 Ml Syringe) 40 mg SC DAILY [facility] Last Admin: 02/24/20 11:04 Dose: 40 mg Documented by: Ergocalciferol (Ergocalciferol 50,000 Unit Capsule) 50,000 unit PO QWEEK [facility] Gabapentin (Gabapentin 100 Mg Capsule) 100 mg PO DAILY [facility] Last Admin: 02/24/20 11:05 Dose: 100 mg Documented by: Glucagon (Glucagon 1 Mg/Ml Syringe) 1 mg IM .X1 PRN PRN Reason: Hypoglycemia Sodium Chloride () 1,000 mls @ 100 mls/hr IV .Q10H [facility] Last Admin: 02/24/20 01:29 Dose: 100 mls/hr Documented by: Sodium Chloride () 250 mls @ 15 mls/hr IV .[id number] PRN PRN Reason: Saline Flush Sodium Chloride () 250 mls @ 15 mls/hr IV .[id number] PRN PRN Reason: Additional IVPB Infusion Insulin Glargine (Insulin Glargine 100 Units/Ml Pen) 10 units SC BID [facility] Last Admin: 02/24/20 11:03 Dose: 10 u Documented by: Insulin Human Lispro (Insulin Lispro 100 Unit/Ml Insuln.Pen) 5 unit SC TIDAC [facility] Last Admin: 02/24/20 11:02 Dose: 5 units Documented by: Insulin Human Lispro (Insulin Lispro 100 Unit/Ml Insuln.Pen) 0 unit SC ACHS [facility]; Protocol Last Admin: 02/24/20 11:02 Dose: 6 units Documented by: Lactulose (Lactulose 20 Gm/30 Ml Udc) 10 gm PO TID [facility] Melatonin (Melatonin 3 Mg Tablet) 3 mg PO QHS PRN PRN PRN Reason: INSOMNIA Metoprolol Succinate (Metoprolol(Xl)Succ 25 Mg Tablet) 25 mg PO DAILY [facility] Last Admin: 02/24/20 11:06 Dose: 25 mg Documented by: Multivitamins (Multivitamins,Therapeutic Tablet) 1 tablet PO DAILY@0800 [facility] Last Admin: 02/24/20 11:05 Dose: 1 tablet Documented by: Ondansetron HCl (Ondansetron 4 Mg/2 Ml Vial) 4 mg IV Q8H PRN PRN PRN Reason: NAUSEA/VOMITING Rifaximin (Rifaximin 550 Mg Tablet) 550 mg PO BID [facility] Last Admin: 02/24/20 11:09 Dose: 550 mg Documented by: Sodium Chloride (0.9% Saline Lock 10 Ml Syringe) 10 - 40 ml IV UD PRN PRN Reason: SALINE FLUSH Discharge Activity: May Not Drive - For 2 week until see his PCP Weight Bearing Status: Weight bearing as tolerated - hospitals Call your doctor if you observe: Fever of 101 or Higher, Coldness, Increased Pain, Numbness or Tingling, Change in Color, Inability to urinate, Inability to have a bowel movement, Using more than one pad per hour, Shortness of breath, Dizziness, Fainting spells, Swelling in the ankles, Prolonged hiccoughing, Increased palpitations (irregular heartbeat), Calf discomfort, Uncontrolled pain Home Medications: Medications to take at Discharge Amitriptyline HCl [Elavil] 50 mg PO DAILY 06/19/13 Metoprolol(XL)Succ [Toprol Xl (Beta Meg)] 25 mg PO DAILY 06/19/13 Simvastatin [Zocor] 10 mg PO QHS 06/19/13 Spironolactone [Aldactone] 25 mg PO DAILY 06/19/13 Multivitamin [Multiple Vitamins] 1 each PO DAILY 04/30/16 Cholecalciferol (Vitamin D3) [Vitamin D3] 4,000 unit PO DAILY 02/23/20 Cyanocobalamin [Vitamin B12] 1,000 mcg PO DAILY@0800 02/23/20 Empagliflozin [Jardiance] 10 mg PO BREAKFAST 02/23/20 Ergocalciferol (Vitamin D2) [Vitamin D2] 50,000 unit PO MO 02/23/20 Gabapentin 300 mg PO DAILY 02/23/20 Liraglutide [Victoza 3-Wes] 1.8 mg SQ DAILY 02/23/20 metFORMIN HCl [Glucophage] 500 mg PO BID #0 02/24/20 Primary Care Physician: Radha Mc MD [Primary Care Provider] - Please follow up with your Primary Care Physician in: 1 to 2 weeks Medical Necessity - Tobacco Use Smoking Status: Never smoker Tobacco Use: Non-smoker Meaningful Use Info Meaningful Use Diagnoses (Choose all that apply): None applicable Inpatient E&M: 48370 Disch Hosp
== END 2020-02-24 12:55 | disposition home or self-care (01) | DRG 682 ==
LOC: ED 01:11 → MS3 03:22
PROVIDERS: Admitting Provider Hospitalist; Emergency Provider Emergency Medicine; PCP Internal Medicine; Visit Provider Internal Medicine
DX: N17.9 Acute kidney failure, unspecified (principal); G93.41 Metabolic encephalopathy; G93.49 Other encephalopathy; Z98.84 Bariatric surgery status; K74.60 Unspecified cirrhosis of liver; E11.42 Type 2 diabetes mellitus with diabetic polyneuropathy; F32.9 Major depressive disorder, single episode, unspecified; I10 Essential (primary) hypertension; E11.65 Type 2 diabetes mellitus with hyperglycemia; M81.0 Age-related osteoporosis without current pathological fracture; E55.9 Vitamin D deficiency, unspecified; K75.81 Nonalcoholic steatohepatitis (NASH); E78.5 Hyperlipidemia, unspecified
CPT/HCPCS: 36415; 70450; 71045; 76705; 80048; 80053; 81001; 82140; 82570; 82962; 83605; 83735; 84100; 84300; 84540; 85025; 85610; 87040; 93005; 97162; 97166; 99285; J7030; J7040; A4216

== ENCOUNTER 2020-06-26 17:26 | Emergency (ER) | payer MEDICARE, SELFPAY ==
[2020-02-23 04:31] VITALS: BMI 23.5
[2020-06-26 17:28] VITALS: BP 146/66; PULSE 86; RESP 16; TEMP 36.3; O2SAT 95; BMI 24.3
[2020-06-26 17:40] VITALS: BP 118/64; PULSE 76; RESP 16; O2SAT 96
--- NOTE | 2020-06-26 17:56 | EKG12_ITS ---
Test Reason : CONFUSION Blood Pressure : / mmHG Vent. Rate : 076 BPM Atrial Rate : 076 BPM P-R Int : 118 ms QRS Dur : 072 ms QT Int : 400 ms P-R-T Axes : 049 -18 004 degrees QTc Int : 450 ms Normal sinus rhythm Low voltage QRS Cannot rule out Anterior infarct (cited on or before 23-FEB-2020) Abnormal ECG Confirmed by STEPHANE MAYFIELD, DAGO ([id number]), associate entertainment editor JENA RUIZ ([id number]) on 06/28/2020 2:42:10 PM Referred By: RITU Confirmed By:CARLOS CALDERÓN MD
--- NOTE | 2020-06-26 17:56 | CT_ITS ---
EXAMINATION : Head CT w/out contrast HISTORY : Confusion COMPARISON : 02/23/2020. TECHNIQUE : Multiple contiguous axial images were obtained from the skull base to the vertex without intravenous contrast. A radiation dose optimization technique was used for this scan. FINDINGS : There is no evidence for acute intracranial hemorrhage, mass effect, or midline shift. There is no extra-axial fluid collection. There are periventricular white matter changes consistent with chronic microvascular ischemic disease. There is normal jordan-white differentiation, without CT evidence of acute ischemia or infarct. The skull base and calvarium are unremarkable. The orbits are unremarkable. The paranasal sinuses are clear. The mastoid air cells are well-aerated. The soft tissues are unremarkable. CT/Brain/Head without Contrast IMPRESSION: No acute intracranial abnormality. Chronic ischemic changes of the brain. Electronically Signed: Chas Gibbs MD at 18:33 EDT Tel , Service support ,
--- NOTE | 2020-06-26 17:57 | ED.DCSUM_ITS ---
History of Present Illness Chief Complaint: Confusion Informant: Patient, Family Narrative: Patient is a 79-year-old female with a history of diabetes, nonalcoholic cirrhosis who presents to the emergency department for confusion. Her symptoms have been present over the past 3 days. She is accompanied by her . Apparently she has been taking double the dose of her amitriptyline. The daughter noticed that 2 of the pills were in her pill dispenser to take in the evening. She is not sure how long she has been doing this for. No other medications are thought to be taken inappropriately. She has had this episode of confusion before in the past and was told that she was very dehydrated. Reviewing her medical record she has a history of uremic encephalopathy. She says she has a head discomfort but denies any head pain. No vision changes. No chest pain or shortness of breath. No abdominal pain or nausea/vomiting. No change in bowel movements. No urinary symptoms. She denies any weakness or loss of sensation. Her only complaint is feeling very fatigued and wanting to go to sleep. No history of dementia or strokes in the past. No known head trauma. Past Medical History - Allergies and Home Meds Allergies/Adverse Reactions: Allergies codeine Allergy (Verified 06/26/20 17:31) Unknown Sulfa (Sulfonamide Antibiotics) Allergy (Verified 06/26/20 17:31) Unknown Primary Care Physician: Radha Mc MD [Primary Care Provider] - As soon as possible Prior records reviewed: Yes Surgical History: cholecystectomy, gastric bypass, hysterectomy, total knee arthroplasty, - - Knee ACL repair; 3 C-sections; shoulder surgery. Smoking Status: Never smoker - Family History Maternal Family History: Reports: - - Her mother at the age of 99 Paternal Family History: Reports: Heart Disease - Her father at the age of 49 from heart disease. Review of Systems All systems negative except as indicated General: Reports: Malaise. Denies: Chills, Fever, Sweats Eyes: Denies: Visual changes - bilaterally, Diplopia ENT: Denies: Rhinorrhea, Sore throat Cardiovascular: Denies: Chest pain, Palpitations Respiratory: Denies: Dyspnea, Cough, Dyspnea on exertion Gastrointestinal: Denies: Abdominal pain, Nausea, Vomiting, Diarrhea Genitourinary: Denies: Dysuria, Hematuria, Frequency Musculoskeletal: Denies: Neck pain, Back pain, Extremity Pain Skin: Denies: Rash, Wounds Neurological: Reports: - - Confusion. Denies: Headache, Weakness, Numbness Physical Exam Vital Signs/Narrative: Vital Signs Temp Pulse Resp BP Pulse Ox 06/26/20 17:40 76 16 118/64 96 06/26/20 17:28 97.3 F L 86 16 146/66 H 95 Inital Vital Signs reviewed: Yes General: Well nourished, Well developed, No Acute Distress Head: Normocephalic, Atraumatic Eyes: Perrl, EOMI ENT: Moist mucous membranes, No rhinorrhea Neck: Supple, Nontender Cardiovascular: Regular rate, Regular rhythm, No murmurs Respiratory: No distress, CTA bilaterally, Chest nontender Abdomen: Soft, Nontender, Nondistended, Normal bowel sounds Back: Nontender, Normal Inspection Extremities: Nontender, No edema Skin: Normal color, No rash Neurological: Alert, Cranial nerves II-XII grossly intact, Normal Strength, Normal Sensation, - - Oriented to person and place but not time. No other focal neurological deficits. No discoordination. . Negative for: Left side facial droop, Right side facial droop Psychological: Normal affect, Normal Mood Diagnostic/Tx/Re-eval - EKG Initial EKG Interpretation: - - Rate of 76 bpm normal sinus rhythm. Normal intervals. QRS of 72 with a QTC of 450. Normal axis. No significant ST elevations or depressions. No T wave abnormalities. - Medical Decision Making Patient presents to the emergency department for confusion for the past 3 days. She did take double her dose of the amitriptyline which would equal 100 mg. She does have mild elevation of her liver enzymes compared to baseline. CT scan did not show any acute intracranial abnormality. She does not have any focal neurological deficits on my physical exam. She is just not oriented completely. Given the fact that this is acute I did recommend hospitalization. They were initially agreeable to staying in the hospital at this time but once the h ospitalist came to discuss care and that she would be an observation they were adamantly refusing staying due to potentially having to pay a bill. Risk associated going home were discussed with them. They understand and accept these risk. She was signed out AGAINST MEDICAL ADVICE. She is going to call her family doctor in the morning. The understands he needs to keep track of her medications and she needs to take them appropriately. Return precautions are reviewed including any worsening symptoms. They can come back at any time for further evaluation and work-up. They understand and are agreeable with this plan. ED Disposition - Plan for ED Patient: Disposition: Against Medical Advice Diagnosis: Confusion, Transaminitis Instructions: ED ALOC Referrals: Radha Mc MD [Primary Care Provider] - As soon as possible
[2020-06-26 18:21] LABS: Absolute Lymphocyte Count 1.88 X10^3/uL (0.83-4.51); Absolute Neutrophil Count 6.8 X10^3/uL (2.0-7.7); Basophil# 0.04 X10^3/uL; Basophil% 0.4 % (0-1); Eosinophil# 0.14 X10^3/uL; Eosinophils% 1.5 % (0-5); Hematocrit 46.9 % (37-47); Hemoglobin 15.1 g/dL (12.0-15.0); Lymphocyte # 1.88 X10^3/ul (4.0); Lymphocyte % 19.9 % (19-41); Mean Corp Hgb Conc 32.2 g/dL (32-36); Mean Corpuscular Hgb 28.3 pg (27.0-32.0); Monocyte# 0.58 X10^3/uL; Monocyte% 6.1 % (0-10); NRBC Flagged by Analyzer 0 % (0-5); Neutrophil # 6.77 X10^3/uL (2.7-7.7); Neutrophil % 71.8 % (47-70); Platelet Count 225 K/mm3 (150-450); RBC Distribution Width CV 16.6 % (11.6-14.6); RBC Distribution Width SD 53.4 fl (35.1-43.9); Red Blood Count 5.33 M/mm3 (4.2-5.4); White Blood Count 9.4 K/mm3 (4.4-11.0)
[2020-06-26 18:41] LABS: Anion Gap 6 (5-15); BUN 17 mg/dL (7-18); BUN/Creat Ratio 22.8 RATIO (10-20); Calcium,Total 9.6 mg/dL (8.5-10.1); Chloride 106 mmol/L (98-107); Creatinine, Serum 0.74 mg/dL (0.55-1.02); EST Glomerular Filtration Rate 80 mL/min (>60); Est Glom Filt Rate - Afr Amer 97 mL/min (>60); Estimated Creatinine Clearance 34.99 ml/min; Glucose 144 mg/dL (74-106); Sodium Level 138 mmol/L (136-145)
[2020-06-26 18:45] LABS: AST(SGOT) 223 U/L (15-37); Alanine Aminotransfer ALT/SGPT 370 U/L (13-56); Albumin, Serum 4.1 g/dL (3.2-5.0); Alkaline Phosphatase 108 U/L (45-117); Globulin 3.8 g/dL (2.2-4.2); Protein, Total 7.9 g/dL (6.4-8.2)
[2020-06-26 19:12] LABS: Bacteria 0 SEEN /hpf (None Seen); Color, Urine Yellow (Yellow); Glucose, Dipstick 1000 mg/dl (Normal); Ketone-Dipstick Negative (Negative); Leukocyte Esterase-Dipstick 100 /ul (Negative); Mucous, Urine 0 SEEN /hpf (<or=2+); Nitrite-Dipstick Negative (Negative); Occult Blood-Urine Negative /ul (Negative); Protein-Dipstick Negative (Negative); Red Blood Cells-Urine 0 SEEN /hpf (0-5); Specific Gravity, Urine 1.015 (1.002-1.030); Urine Bilirubin Dipstick Negative (Negative); Urine Clarity Clear (Clear); Urine Urobilinogen Normal (Normal)
[2020-06-26 19:17] LABS: Squamous Epithelial Cells - UA 0-5 SEEN /hpf (5-10); White Blood Cells 0-5 SEEN /hpf (0-5)
--- NOTE | 2020-06-26 20:01 | HP.PCM_ITS ---
Problem List (1) Altered mental status Status: Acute (2) Hypertension Status: Chronic (3) Hyperlipidemia Status: Chronic (4) Fibromyalgia Status: Chronic (5) Diabetes mellitus, type 2 Status: Chronic (6) Cirrhosis, nonalcoholic Status: Chronic History of Present Illness Date of Admission: 06/26/20 Chief Complaint: Confusion The patient is a 79 year old F who presents today with confusion. Patient's daughter reports that when she was checking her mom's medication organizer she noticed to amitriptyline in each day instead of 1. It is unknown how long patient has been taking double dose. Patient states that she is fuzzy in the head. Patient denies other symptoms. Patient is noted to have elevated ALT and AST however ammonia is normal. Otherwise patient labs are unremarkable. EKG shows normal sinus rhythm, heart rate 73. Past Medical History Past Medical History (Chronic Problems): Chronic Problems Hypertension (Chronic) Hyperlipidemia (Chronic) Fibromyalgia (Chronic) History of gastric bypass (Chronic) Diabetes mellitus, type 2 (Chronic) Cirrhosis, nonalcoholic (Chronic) Allergies codeine Allergy (Verified 06/26/20 17:31) Unknown Sulfa (Sulfonamide Antibiotics) Allergy (Verified 06/26/20 17:31) Unknown Home Medications: Ambulatory Orders Medication Instructions Recorded Amitriptyline HCl [Elavil] 50 mg PO DAILY 06/19/13 Metoprolol(XL)Succ [Toprol Xl 25 mg PO DAILY 06/19/13 (Beta Meg)] Simvastatin [Zocor] 10 mg PO QHS 06/19/13 Spironolactone [Aldactone] 25 mg PO DAILY 06/19/13 Multivitamin [Multiple Vitamins] 1 each PO DAILY 04/30/16 Cholecalciferol (Vitamin D3) 4,000 unit PO DAILY 02/23/20 [Vitamin D3] Cyanocobalamin [Vitamin B12] 1,000 mcg PO DAILY@0800 02/23/20 Empagliflozin [Jardiance] 10 mg PO BREAKFAST 02/23/20 Liraglutide [Victoza 3-Wes] 1.8 mg SQ DAILY 02/23/20 metFORMIN HCl [Glucophage] 500 mg PO BID #0 02/24/20 Surgical History: cholecystectomy, gastric bypass, hysterectomy, total knee arthroplasty, - - Knee ACL repair; 3 C-sections; shoulder surgery. 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 Review of Systems Constitutional: Reports: Fatigue. Denies: Chills, Fever, Weight Change HEENT: Denies: Head Aches, Sinus Congestion, Sinus Drainage Cardiovascular: Denies: Chest Pain, Palpitations Respiratory: Denies: Cough, Shortness of breath at rest, Sputum production Gastrointestinal: Denies: Abdominal Pain, Nausea, Vomiting Genitourinary: Denies: Dysuria Musculoskeletal: Denies: Joint Pain, Joint Tenderness Skin: Denies: Rash, Wounds Neurological: Reports: Confusion. Denies: Focal weakness, Numbness, Tingling Psychiatric: Denies: Anxiety, Depression, Homicidal Ideations, Suicidal Ideations Hematologic/ Lymphatic: Denies: Easy Bruising, Easy Bleeding VTE Information - Inpt Only VTE Present on Admission: No VTE Mechan Device Prophylaxis: None VTE Pharm Prophylaxis ordered?: Yes - Physical Exam Vitals/I&O's: Vital Signs Temp Pulse Resp BP Pulse Ox 97.3 F L 76 16 118/64 96 06/26/20 17:28 06/26/20 17:40 06/26/20 17:40 06/26/20 17:40 06/26/20 17:40 Oxygen Delivery Method Room Air Weight: 129 lb Body Mass Index (BMI) 24.3 Finger Stick Blood Glucose 309 General: Alert, Oriented x3, Cooperative, Disoriented - Difficulty with information recall HEENT: Atraumatic, PERRLA, EOMI, Normocephalic Neck: Supple, No JVD, Negative Carotid Bruits Lungs: Clear to auscultation, Normal air movement, No rhonchi, No wheeze, No rales Cardiovascular: Regular rate, Regular Rhythm, Normal S1, Normal S2, No murmurs Abdomen: Bowel Sounds Present, Soft, Non Tender Extremities: No edema, Capillary Refill Less than 3 Seconds Skin: No rashes, No breakdown Musculoskeletal: No Tenderness to Palpation of Joints or Extremities Neurological: Cranial nerves II-XII grossly intact Psych/Mental Status: Normal Affect, Appropriate Laboratory Results 06/26/20 18:00: Total Bilirubin 0.30, Direct Bilirubin 0.10, AST 223 H, ALT 370 H, Alkaline Phosphatase 108, Total Protein 7.9, Albumin 4.1, Globulin 3.8 06/26/20 18:00: WBC 9.4, RBC 5.33, Hgb 15.1 H, Hct 46.9, MCV 88.0, MCH 28.3, MCHC 32.2, RDW Std Deviation 53.4 H, RDW Coeff of Kamari 16.6 H, Plt Count 225, MPV 11.0, Immature Gran % (Auto) 0.300, Neut % (Auto) 71.8 H, Lymph % (Auto) 19.9, [place] % (Auto) 6.1, Eos % (Auto) 1.5, Baso % (Auto) 0.4, Absolute Neuts (auto) 6.8, Absolute Lymphs (auto) 1.88, Nucleated RBC % 0 06/26/20 18:00: Sodium 138, Potassium 4.0, Chloride 106, Carbon Dioxide 26.0, Anion Gap 6, BUN 17, Creatinine 0.74, Estim Creat Clear Calc 34.99, Est GFR (MDRD) Af Amer 97, Est GFR (MDRD) Non-Af 80, BUN/Creatinine Ratio 22.8 H, Glucose 144 H, Calcium 9.6, Troponin I < 0.015 06/26/20 18:13: Ammonia 11.0 06/26/20 19:05: Urine Color Yellow, Urine Clarity Clear, Urine pH 6.0, Ur Specific [place] 1.015, Urine Protein Negative, Urine Glucose (UA) 1000 H, Urine Ketones Negative, Urine Occult Blood Negative, Urine Nitrite Negative, Urine Bilirubin Negative, Urine Urobilinogen Normal, Ur Leukocyte Esterase 100 H, Urine RBC 0 SEEN, Urine WBC 0-5 SEEN, Ur Squamous Epith Cells 0-5 SEEN, Urine Bacteria 0 SEEN, Urine Mucus 0 SEEN Assessment/Plan All Active Problems Altered mental status (Acute) 1. Altered mental status -Admit to [facility] for observation -Slightly related to accidental double dosing of amitriptyline -CBC and CMP for a.m. -IV fluids ordered -See OT to eval and treat 2. Hypertension -Continue home medication regimen 3. Hyperlipidemia -Continue home medication regimen 4. Fibromyalgia -Hold amitriptyline overnight 5. Diabetes mellitus type II -Hold Metformin, continue Jardiance -AC at bedtime blood sugars with sliding scale insulin ordered 6. Non-Alcoholic cirrhosis -Reviewed patient previous labs, AST and ALT elevated in comparison. DVT prophylaxis-subcu Lovenox This patient was seen by AUGUSTO Posada under the supervision of Dr. Greenfield
[2020-06-26 20:04] VITALS: BP 147/87; PULSE 72; RESP 16; TEMP 36.6; O2SAT 97
== END 2020-06-26 20:49 | disposition left against medical advice (07) ==
LOC: ED 19:54 → MS3 20:38
PROVIDERS: Emergency Provider Emergency Medicine; PCP Internal Medicine
DX: R41.0 Disorientation, unspecified (principal); E11.9 Type 2 diabetes mellitus without complications; Z98.84 Bariatric surgery status; Z90.710 Acquired absence of both cervix and uterus; Z90.49 Acquired absence of other specified parts of digestive tract; Z79.84 Long term (current) use of oral hypoglycemic drugs
CPT/HCPCS: 70450; 80048; 80076; 81001; 82140; 84484; 85025; 93005; 99284; A4216

== ENCOUNTER 2021-07-14 21:23 | Emergency (ER) | payer MEDICARE, SELFPAY ==
[2021-07-14 21:24] VITALS: BP 110/57; PULSE 78; RESP 16; TEMP 36.7; O2SAT 96; BMI 22.6
--- NOTE | 2021-07-14 21:30 | RAD_ITS ---
EXAM: XR Right Shoulder Complete, 2 or More Views CLINICAL INDICATION: 80 years old, Female; FALL INJURY TECHNIQUE: Two or more views of the right shoulder. This report was created using [employer] report generation technology. COMPARISON: None. FINDINGS: Bones/joints: Mild degenerative changes right glenohumeral joint. Postop changes right shoulder. Old right-sided rib fracture. No sclerotic or destructive changes observed. Soft tissues: Unremarkable. No soft tissue swelling or gas. No radiopaque foreign body. RAD/Shoulder min 2 Views IMPRESSION: Mild degenerative changes right glenohumeral joint. No acute findings. Electronically Signed: Harrison Mcarthur MD at 21:59 EDT ,
--- NOTE | 2021-07-15 00:26 | EX.ED.UPPERE ---
HPI History of Present Illness Chief Complaint: Upper Extremity Injury Informant: patient and spouse/S.O. Occured/Mechanism Mechanism/Context: Yes fall Onset/Context/Timing Onset: Today Context: Sudden Onset Timing: Continuous Quality of Pain: Aching Location: Right shoulder, right hip Worsened by: Movement Relieved by: Nothing Associated Symptoms Associated Symptoms: Negative for Parasthesia, Weakness and Loss of Funtion Narrative Narrative: Patient presents with right shoulder and right hip pain that began after a fall today. Patient landed on her right side. Patient denies any head injury or loss of consciousness. Patient denies any paresthesias or weakness. Patient describes her pain as aching. Patient states it is worse with movement especially in her right shoulder. Patient was able to ambulate after the fall. Patient does admit to a mild headache. Patient states her shoulder pain radiates up into her neck. Patient has had a prior rotator cuff surgery on her right shoulder. PFSH PFSH Home Medications amitriptyline 50 mg PO DAILY 06/19/13 [History Last Taken 02/22/20] metoprolol succinate 25 mg PO DAILY 06/19/13 [History Last Taken 02/22/20] simvastatin 10 mg PO QHS 06/19/13 [History Last Taken 02/21/20] spironolactone 25 mg PO DAILY 06/19/13 [History Last Taken 02/22/20] multivitamin [Multiple Vitamins] 1 ea PO DAILY 04/30/16 [History Last Taken 02/22/20] cholecalciferol (vitamin D3) 4,000 unit PO DAILY 02/23/20 [History Last Taken 02/22/20] cyanocobalamin (vitamin B-12) 1,000 mcg PO DAILY@0800 02/23/20 [History Last Taken 02/22/20] empagliflozin 10 mg PO BREAKFAST 02/23/20 [History Last Taken 02/22/20] liraglutide 1.8 mg SQ DAILY 02/23/20 [History Last Taken 02/22/20] metformin 500 mg PO BID #0 02/24/20 [Rx Last Taken 02/22/20] Allergy/AdvReac Type Severity Reaction Status Date / Time codeine Allergy Unknown Verified 06/26/20 17:31 Sulfa (Sulfonamide Allergy Unknown Verified 06/26/20 17:31 Antibiotics) Surgical History (Updated 07/15/21 @ 00:[address] Scott Norman, ) History of hysterectomy History of total right knee replacement (TKR) Hx of cholecystectomy S/P right rotator cuff repair Social History Smoking Status: Never smoker ROS ROS ED Constitutional Constitutional ED: Denies chills or fever(s) Eyes Eyes: Denies blurry vision or change in vision ENT ENT ED: Denies rhinorrhea or sore throat Cardiovascular Cardiovascular: Denies chest pain or palpitations Respiratory/Chest Respiratory/Chest: Denies cough or dyspnea Gastrointestinal Gastrointestinal: Denies nausea or vomiting Genitourinary Genitourinary ED: Denies dysuria or hematuria Musculoskeletal Musculoskeletal: Reports neck pain; Denies back pain Integumentary Denies abscess or rash Neurologic Neurologic: Reports headache(s); Denies weakness Allergic/Immunologic Allergic/Immunologic ED: Denies mouth swelling or urticaria EXAM Physical Exam Narrative Exam Narrative: There is mild tenderness and edema over the lateral aspect of the right hip. There is good range of motion. There is no pain with internal or external rotation. There is tenderness over the right shoulder area. There is pain with abduction and complete flexion. There is no obvious deformity noted. Radial pulses are equal bilateral. Strength is 5/5 bilaterally in the upper and lower extremities. There are no sensory deficits noted. There is no tenderness over the cervical paraspinal muscles or cervical spine. Pedal pulses are equal bilaterally. Radial pulses are equal bilaterally. Const Vital Signs: 07/14/21 21:24 Temperature 98.1 F Temperature Source Temporal Pulse Rate 78 Respiratory Rate 16 Blood Pressure 110/57 L Blood Pressure Mean 74 Pulse Ox 96 Oxygen Delivery Method Room Air Positive well nourished and well developed General Appearance ED: well developed and NAD HEENT Reports moist mucous membranes Neck full ROM and supple Neuro oriented x3, CN's II-XII intact bilaterally, moves all extremities, no focal motor deficits and no sensory deficits noted Sensorium / Orientation: alert Psych mental status grossly normal MDM MDM MDM Narrative Medical decision making narrative: X-rays of the right shoulder were obtained. There are 4 views. On my interpretation, there is no acute fracture or dislocation. There is a bone anchored noted in the proximal right humerus. There is no soft tissue swelling. Radiologist also interpreted the x-rays and agrees. Since the patient is able to ambulate and does not have pain with logrolling of her right lower extremity, I do not feel x-rays of the right hip are indicated at this time. Patient was advised of her findings. Patient was instructed to use ice to the area. Patient was instructed the range of motion exercises. Patient was instructed to follow-up with her primary care physician in 5 to 7 days. Patient was instructed to take Tylenol or ibuprofen as needed for pain. Patient and spouse understood and were agreeable with the plan. All questions were answered. Radiography Diagnostic Testing: Clinical Impression(s) from Imaging Studies Shoulder X-Ray 07/14/21 21:30 IMPRESSION: Mild degenerative changes right glenohumeral joint. No acute findings. Electronically Signed: Harrison Mcarthur MD at 21:59 EDT , Discharge Plan Triage Chief Complaint: Upper Extremity Injury ED Provider: Scott Norman Dx/Rx/DC Orders Clinical Impression: Contusion of right shoulder region, Contusion of right hip, initial encounter Instructions: ED Hip Contusion, ED Shoulder Contusion Prescriptions: No Action amitriptyline 75 MG tablet 50 mg PO DAILY RF: 0 metoprolol succinate 50 MG tablet 25 mg PO DAILY RF: 0 simvastatin 10 MG tablet 10 mg PO QHS RF: 0 spironolactone 25 MG tablet 25 mg PO DAILY RF: 0 multivitamin [Multiple Vitamins] 1 EACH tablet 1 ea PO DAILY RF: 0 cyanocobalamin (vitamin B-12) 500 MCG tablet 1,000 mcg PO DAILY@0800 RF: 0 cholecalciferol (vitamin D3) 2,000 UNIT capsule 4,000 unit PO DAILY RF: 0 liraglutide 0.6 MG/0.1 ML pen injector 1.8 mg SQ DAILY RF: 0 empagliflozin 10 MG tablet 10 mg PO BREAKFAST RF: 0 metformin 500 MG tablet 500 mg PO BID Qty: 0 RF: 0 Primary Care Provider: Radha Mc Referrals: Radha Mc MD [Primary Care Provider] - 5-7 Days Disposition Disposition: Home, Self Care Discharge Date/Time: 07/14/21 22:21
--- NOTE | 2021-07-16 15:54 | CASEMGMT ---
Addendum entered by Jennifer Howard 07/16/21 17:19: Attempted f/u call again. answered and put pt on the phone. Pt states, I'm doing well. She states she is still sore in a couple of places, but is improving. She has a f/u appt scheduled w/Dr Mc next week. She denies having any questions or needs. She thanked JESSEE JACOBS for calling. Original Note: JESSEE JACOBS ED visit f/u call: ED visit: 07/14/21 Complaint: Upper extremity injury after fall Call to pt's #. Busy signal x 2 attempts. Unable to leave . Tucker HATCHN JESSEE JACOBS
== END 2021-07-14 22:21 | disposition home or self-care (01) ==
PROVIDERS: Emergency Provider Emergency Medicine; PCP Internal Medicine; Visit Provider Emergency Medicine
DX: S40.011A Contusion of right shoulder, initial encounter (principal); S70.01XA Contusion of right hip, initial encounter; Z79.899 Other long term (current) drug therapy; Z79.84 Long term (current) use of oral hypoglycemic drugs; W19.XXXA Unspecified fall, initial encounter
CPT/HCPCS: 73030; 99282

== ENCOUNTER → 2021-10-06 | Outpatient (CLI) | payer MEDICARE, SELFPAY | END | disposition home or self-care (01) | LOC: SL 20:29 | PROVIDERS: PCP Internal Medicine; Referring Provider Internal Medicine; Visit Provider Internal Medicine | DX: G47.10 Hypersomnia, unspecified (principal) | CPT/HCPCS: 95810 ==

== ENCOUNTER → 2021-11-18 | Outpatient (CLI) | payer MEDICARE, SELFPAY | END | disposition home or self-care (01) | LOC: SL 13:47 | PROVIDERS: PCP Internal Medicine; Visit Provider Nurse Practitioner Acute Care | DX: Z46.89 Encounter for fitting and adjustment of other specified devices (principal) | CPT/HCPCS: 98960; G0463 ==

== ENCOUNTER → 2021-12-30 | Outpatient (CLI) | payer MEDICARE, SELFPAY | END | disposition home or self-care (01) | LOC: SL 08:57 | PROVIDERS: PCP Internal Medicine; Visit Provider Nurse Practitioner Acute Care | DX: G47.33 Obstructive sleep apnea (adult) (pediatric) (principal) ==

== ENCOUNTER 2022-02-11 13:09 | Emergency (ER) | payer MEDICARE, SELFPAY ==
[2022-02-11 13:09] VITALS: BP 131/64; PULSE 71; RESP 16; TEMP 36.6; O2SAT 97; BMI 22.6
--- NOTE | 2022-02-11 13:15 | RAD_ITS ---
STUDY: X-RAY - RIGHT ANKLE REASON FOR EXAM: Female, 81 years old. INJURY TECHNIQUE: 3 view(s) of the ankle. COMPARISON: None. FINDINGS: An acute horizontal fractures present across the tip of the lateral malleolus with mild displacement of the small distal fragment. Moderate overlying soft tissue swelling is present. No additional fractures are seen. Normal medial malleolus. Normal tibiotalar articulation and ankle mortise. Normal visualized talus and calcaneus. The visualized subtalar, talonavicular, calcaneocuboid and tarsal articulations are normal. There are atherosclerotic calcifications. RAD/Ankle min 3 Views IMPRESSION: 1. Acute mildly displaced lateral malleolus fracture Electronically Signed: Theo Garcia MD at 14:07 EST ,
--- NOTE | 2022-02-11 14:43 | ED.VIS.LOWEX ---
HPI History of Present Illness Chief Complaint: Lower Extremity Injury Informant: patient and spouse/S.O. Narrative Narrative: 81-year-old female states that she was walking in her house when she caught her ankle and fell down. This resulted in an injury to the lateral aspect of the right ankle. She denies any other injuries. Specifically she denies any medial ankle pain or proximal fibular/knee pain. She denies any arm symptoms and she denies striking her head. She notes pain. PFSH PFSH Home Medications metoprolol succinate 50 mg tablet,extended release 24 hr 25 mg PO DAILY blood pressure 06/19/13 [History Last Taken 02/22/20] simvastatin 10 mg tablet 10 mg PO QHS cholesterol 06/19/13 [History Last Taken 02/21/20] spironolactone 25 mg tablet 25 mg PO DAILY diuretic 06/19/13 [History Last Taken 02/22/20] multivitamin (Multiple Vitamins tablet) 1 ea PO DAILY supplement 04/30/16 [History Last Taken 02/22/20] cyanocobalamin (vitamin B-12) 500 mcg tablet 1,000 mcg PO DAILY@0800 supplement 02/23/20 [History Last Taken 02/22/20] empagliflozin 10 mg tablet 10 mg PO BREAKFAST diabetes 02/23/20 [History Last Taken 02/22/20] liraglutide 0.6 mg/0.1 mL (18 mg/3 mL) subcutaneous pen injector 1.8 mg SQ DAILY diabetes 02/23/20 [History Last Taken 02/22/20] metformin 500 mg tablet 500 mg PO BID diabetes ##0 02/24/20 [Rx Last Taken 02/22/20] cholecalciferol (vitamin D3) 50 mcg (2,000 unit) capsule 4,000 unit PO QWEEK supplement 11/12/21 [History Last Taken Unknown] oxycodone-acetaminophen 5 mg-325 mg tablet 1 tab PO Q6H PRN PRN pain 5 days #20 TABLETS 02/11/22 [Rx Last Taken Unknown] Allergy/AdvReac Type Severity Reaction Status Date / Time codeine Allergy Unknown Verified 02/11/22 13:11 Sulfa (Sulfonamide Allergy Unknown Verified 02/11/22 13:11 Antibiotics) Surgical History History of hysterectomy History of total right knee replacement (TKR) Hx of cholecystectomy S/P right rotator cuff repair Social History Smoking Status: Never smoker ROS ROS ED Constitutional Constitutional ED: Denies chills or weight loss Eyes Eyes: Denies change in vision or diplopia ENT ENT ED: Denies ear pain, rhinorrhea or sore throat Cardiovascular Cardiovascular: Denies chest pain, orthopnea, palpitations or racing heartbeat Respiratory/Chest Respiratory/Chest: Denies cough, dyspnea or orthopnea Gastrointestinal Gastrointestinal: Denies abdominal pain, diarrhea, nausea or vomiting Genitourinary Genitourinary ED: Denies dysuria, hematuria or urinary frequency Musculoskeletal Musculoskeletal: Denies arthralgias or myalgias Integumentary Denies abscess or rash Neurologic Neurologic: Denies headache(s) or weakness Psychiatric Psychiatric: Denies anxiety, depression, suicidal ideation or suicidal thoughts Endocrine Endocrinology: Denies polydipsia, polyphagia or polyuria Allergic/Immunologic Allergic/Immunologic ED: Denies mouth swelling, tongue swelling or urticaria EXAM Physical Exam Const Vital Signs: 02/11/22 13:09 Temperature 97.8 F Temperature Source Temporal Pulse Rate 71 Respiratory Rate 16 Blood Pressure 131/64 H Blood Pressure Mean 86 Pulse Ox 97 Oxygen Delivery Method Room Air Positive well nourished and well developed General Appearance ED: well developed HEENT Reports normocephalic, head/scalp atraumatic and moist mucous membranes Eyes PERRL and EOMs intact bilaterally Neck no lymphadenopathy, supple and no JVD Resp normal respiratory effort and clear to auscultation bilaterally Cardio regular rate, regular rhythm and no murmurs GI normal to inspection, nondistended, normoactive bowel sounds and non-tender Palpation: soft Back/Spine no CVA tenderness and normal ROM Extremity Extremity Narrative: There is swelling and tenderness over the lateral malleolus of the right ankle. Achilles tendon palpates and functionally is intact. There is no medial joint pain. No fifth metatarsal pain. There is no fibular head pain. Does not appear to be any open wounds. General Extremety ED: Negative for edema General Extremity: Negative for edema Neuro oriented x3 and CN's II-XII intact bilaterally Sensorium / Orientation: alert Motor Exam: strength 5/5 throughout Psych mental status grossly normal Mood & Affect: Negative for depressed or tearful Skin no rashes or lesions noted and no wounds MDM MDM MDM Narrative Medical decision making narrative: My interpretation of the plain films of the right ankle is an acute mildly displaced lateral malleolus fracture or soft tissue swelling. The patient and I and her family reviewed the x-rays. We discussed home treatment including a walking boot and use of a walker which she has at home. I will give her some oxycodone here and a prescription for Percocet at home. We talked about DVT and PE prevention and signs and symptoms. Patient to return if worsening or concerns follow-up with orthopedics Radiography Diagnostic Testing: Clinical Impression(s) from Imaging Studies Ankle X-Ray 02/11/22 13:15 IMPRESSION: 1. Acute mildly displaced lateral malleolus fracture Electronically Signed: Theo Garcia MD at 14:07 EST Reading Location ID and State: [address] [place] [address] , Service support , Discharge Plan Triage Chief Complaint: Lower Extremity Injury ED Provider: Blaze Evans Dx/Rx/DC Orders Clinical Impression: Fall, Ankle fracture, lateral malleolus, closed, Ankle pain, right Instructions: ED Ankle Fracture, Distal Fibula Prescriptions: New oxycodone-acetaminophen [oxycodone-acetaminophen] 5-325 mg tablet 1 tab PO Q6H PRN PRN (Reason: pain) 5 Days Qty: 20 0RF No Action metoprolol succinate 50 MG tablet 25 mg PO DAILY simvastatin 10 MG tablet 10 mg PO QHS spironolactone 25 MG tablet 25 mg PO DAILY multivitamin [Multiple Vitamins] 1 EACH tablet 1 ea PO DAILY cyanocobalamin (vitamin B-12) 500 MCG tablet 1,000 mcg PO DAILY@0800 liraglutide 0.6 MG/0.1 ML pen injector 1.8 mg SQ DAILY empagliflozin 10 MG tablet 10 mg PO BREAKFAST metformin 500 MG tablet 500 mg PO BID Qty: 0 0RF Rx Instructions: Hold for 5 days as patient had lactic acidosis cholecalciferol (vitamin D3) 50 mcg (2,000 unit) capsule 4,000 unit PO QWEEK Primary Care Provider: Radha Mc Referrals: Gabe Carpenter DPM [Med Staff - Active Staff] - As soon as possible (for podiatry follow up) Radha Mc MD [Primary Care Provider] - Activity Restrictions/Additional Instructions: You may follow-up with Dr. Alston for podiatry or an orthopedic surgeon of your choice Disposition Disposition: Home, Self Care
[2022-02-11] MEDS: oxyCODONE 5 MG Tablet PO (15:44)
[2022-02-11 15:52] VITALS: BP 130/86; PULSE 90; RESP 15; O2SAT 98
== END 2022-02-11 15:54 | disposition home or self-care (01) ==
PROVIDERS: Emergency Provider Emergency Medicine; PCP Internal Medicine; Visit Provider Emergency Medicine
DX: S82.891A Other fracture of right lower leg, initial encounter for closed fracture (principal); W19.XXXA Unspecified fall, initial encounter
CPT/HCPCS: 73610; 99283